=== PATIENT | male | born 1965 | race Caucasian/White ===

== ENCOUNTER 2017-02-20 11:08 | Outpatient (CLI) | payer MEDICAID ==
[~2017-02-20] VITALS: Ht 193 cm; Wt 113.6 kg
--- NOTE | ~2017-02-20 | HEMODYNAMI ---
PATIENT:MALIHA SHARMA MEDICAL RECORD: [id number] : 67 LOCATION:D.CAT ADMISSION DATE: 02/20/17 Generatedon:02/20/201713:20 Patient name: MALIHA SHARMA Patient #: [id number] SSN: D OB: 1965 Date of study: 02/20/2017 Page: Of Hemodynamic Procedure Report Patient Data Patient Demographics Procedure consent was obtained First Name: MALIHA Gender: Male Last Name: ZACHARY : 1965 Middle Initial: CHANDA Age: 51 year(s) Patient #: [id number] Race: Unknown Additional ID: [id number] Contact details [address]: [address] [place] [address] State: [place] City: [place] Zip code: [address] Past Medical History Allergies: No known allergies Admission Admission Data Admission Date: 02/20/2017 Admission Time: 11:08 Procedure Procedure Types Cath Procedure Diagnostic Procedure LHC LHC w/Coronaries Miscellaneous Procedures Moderate Sedation up to 15 minutes Procedure Description Procedure Date Procedure Date: 02/20/2017 Procedure Start Time: 13:06 Procedure End Time: 13:19 Procedure Staff Name Function Vahid Dominguez MD Performing Physician Xi Milan RT Monitor Nanette Blanca RT Scrub Evan Catalan RN Nurse Procedure Data Cath Procedure Fluoroscopy Diagnostic fluoroscopy Total fluoroscopy Time: 1.3 time: 1.3 min min Diagnostic fluoroscopy Total fluoroscopy dose: 471 dose: 471 mGy mGy Contrast Material Contrast Material Type Amount (ml) Isovue 300 57 Entry Location Entry Primary Successful Side Size Upsize Upsize Entry Closure Succes sful Closure Location (Fr) 1 (Fr) 2 (Fr) Remarks Device Remarks Femoral Right 5 Fr Exoseal artery Estimated blood loss: 5 ml Diagnostic catheters Device Type Used For End Catheter Placement MULTIPACK JL 4.0 5Fr Left Coronary catheter Angiography MULTIPACK 3DRC 5Fr Right Coronary catheter Angiography MULTIPACK Pigtail 5 Fr LV Angiography catheter Procedure Complications No complications Procedure Medications Medication Administration Route Dosage 0.9% NaCl I.V. 100 ml/hr Oxygen NC 2 l/min Heparin Flush Bag added to field 2 bags (1000units/500ml NS) Lidocaine 2% added to field 20 Versed I.V. 1 mg Fentanyl I.V. 50 mcg Zofran I.V. 4 mg Hemodynamics Rest Heart Rate: 66 (bpm) Pressure Samples Time Site Value (mmHg) Purpose Heart Use Rate(bpm) 13:13 LV 115/11,16 EDP 76 13:14 AO 135/84(105) Pullback 76 13:14 LV 127/13,26 Pullback 76 Gradients Valve Time Site 1 Site 2 Mean SEP/DFP Peak To Heart Use (mmHg) (sec/min) Peak Rate (mmHg) (bpm) Aortic 13:14 LV AO 0 6 0 76 127/13,26 135/84(105) Calculations Valve P-P Mean Valve Index Valve Source Name Gradient Area Flow (cm2) Aortic 0 0 0 0 Snapshots Pre Cath Intra NCS Post Cath Vital Signs Time Heart Resp SPO2 etCO2 NIBP (mmHg) Rhythm Pain Sedation Rate (ipm) (%) (mmHg) Status Level (bpm) 12:59:41 63 16 97 0 137/92(119) NSR 0 (11) 10(A) , No pain 13:04:22 68 16 90 37 142/80(107) NSR 0 (11) 10(A) , No pain 13:08:58 76 14 92 38.5 143/91(123) NSR 0 (11) 9(A) , No pain 13:13:37 77 17 96 35.5 143/88(129) NSR 0 (11) 10(A) , No pain 13:18:19 74 17 96 30.2 139/90(114) NSR 0 (11) 10(A) , No pain 13:20:04 78 19 98 38.5 140/90(109) NSR 0 (11) 10(A) , No pain Medications Time Medication Route Dose Verified Delivered Reason Notes Effe ctiveness by by 13:01:36 0.9% NaCl I.V. 100 Evan Evan Per ml/hr Hossein Catalan physician RN RN 13:01:46 Oxygen NC 2 Evan Evan Per l/min Hossein Catalan physician RN RN 13:01:59 Heparin Flush added 2 Evan Evan used for Bag to bags Hossein Catalan procedure (1000units/500ml field RN RN NS) 13:02:15 Lidocaine 2% added 20ml Evan Evan for local to vial Lorigan Khushiigan anesthetic field RN RN 13:02:28 Versed I.V. 1 mg Evan Evan for Lorigan Lorigan sedation RN RN 13:02:40 Fentanyl I.V. 50 Evan Evan for mcg Lorigan Hossein sedation RN RN 13:11:43 Zofran I.V. 4 mg Evan Evan Per Hossein Catalan physician RN ski binding fitter and repairer Log Time Note 12:46:36 Evan Catalan RN sent for patient. Start room use. 12:46:37 Time tracking: Regular hours 12:46:42 Plan of Care:Hemodynamics will remain stable., Cardiac rhythm will remain stable., Comfort level will be maintained., Respiratory function will remain adequate., Patient/ family verbilizes understanding of procedure., Procedure tolerated without complication., Recovers from procedure without complications.. 12:50:57 Patient received from Pre/Post Procedure Room to CCL 1 Alert and oriented. Tansferred to table in Supine position. 12:50:58 Warm blankets applied, and jamilah hugger turned on for patient comfort. 12:51:00 Correct patient and procedure confirmed by team. 12:51:03 Signed procedure consent form obtained from patient. 12:51:04 ECG and BP/O2 sat monitors applied to patient. 12:51:05 Full Disclosure recording started 12:58:49 Vital chart was started 12:58:52 Rhythm: sinus rhythm 12:59:32 H&P Date Dictated: 02/14/2017 Within 30 days and on chart., H&P Addendum completed by physician on day of procedure. (MUST COMPLETE FOR ALL OUTPATIENTS). 12:59:33 Pre-procedure instructions explained to patient. 12:59:34 Pre-op teaching completed and patient verbalized understanding. 12:59:35 Family in patients room. 12:59:37 Patient NPO since Midnight. 12:59:43 Patient allergic to No known allergies 12:59:45 Is the patient allergic to Iodine/contrast media? No. 12:59:47 Is patient on blood thinner?No 12:59:51 Patient diabetic? No. 12:59:55 Previous problem with sedation/anesthesia? No ? 12:59:55 Snore? Yes 12:59:56 Sleep apnea? No 12:59:57 Deviated septum? No 12:59:58 Opens mouth fully? Yes 12:59:58 Sticks out tongue? Yes 13:00:00 Airway obstruction? No ? 13:00:02 Dentures? Yes IN 13:00:07 Pre procedure: right dorsailis pedis pulse 2+ Normal; easily identifiable; not easily obliterated 13:00:09 Modified Carrillo's test Ulnar > 7 seconds. 13:00:11 Patient pain scale 0/10 ?. 13:00:17 IV patent on arrival in left hand with 0.9% NaCl at [facility]. 13:00:20 Lab results completed and on chart. 13:00:22 Right groin area was prepped with chlora-prep and draped in sterile fashion 13:00:25 Alarms reviewed by R. N. 13:00:25 Sharps counted by scrub and verified by R.N. 13:00:27 Final Timeout: patient, procedure, and site verified with staff and physician. All members of the team are in agreement. 13:00:29 Right groin site verified by team. 13:00:32 Physical assessment completed. ASA score P 2 - A patient with mild systemic disease as per Vahid Dominguez MD. 13:00:34 Sedation plan: IV Moderate Sedation Medication:Versed, Fentanyl 13:01:36 0.9% NaCl 100 ml/hr I.V. was administered by Evan Catalan RN; Per physician; 13:01:43 Use device set Femoral Dx 13:01:44 ACIST Syringe (90811) opened to sterile field. 13:01:44 Bag Decanter (2002S) opened to sterile field. 13:01:45 Medline Cath Pack ([id number]) opened to sterile field. 13:01:45 SHEATH 5FR [place] (ZVO509) opened to sterile field. 13:01:46 Oxygen 2 l/min NC was administered by Evan Catalan RN; Per physician; 13:01:46 DIAGNOSTIC WIRE .035 260cm J wire (190315) opened to sterile field. 13:01:47 ACIST Hand Control (66055) opened to sterile field. 13:01:48 ACIST Manifold (50329) opened to sterile field. 13:01:49 DIAGNOSTIC Multipack 5Fr catheter set (FX1996) opened to sterile field. 13:01:49 Tegaderm 4 x 4 (1626W) opened to sterile field. 13:01:50 PERCUTANEOUS ENTRY 19GA needle opened to sterile field. 13:01:59 Heparin Flush Bag (1000units/500ml NS) 2 bags added to field was administered by Evan Catalan RN; used for procedure; 13:02:15 Lidocaine 2% 20ml vial added to field was administered by Evan Catalan RN; for local anesthetic; 13:02:28 Versed 1 mg I.V. was administered by Evan Catalan RN; for sedation; 13:02:40 Fentanyl 50 mcg I.V. was administered by Evan Catalan RN; for sedation; 13:04:54 Zero performed for pressure channel P1 13:05:53 Procedure started. 13:06:11 Local anesthetic to right femoral artery with Lidocaine 2% by Vahid Dominguez MD.INITIAL ACCESS ONLY 13:06:29 A 5 Fr sheath was inserted into the Right Femoral artery 13:07:03 Baseline sample Acquired. 13:08:03 A MULTIPACK JL 4.0 5Fr catheter was advanced over the wire and used for Left Coronary Angiography. 13:09:19 Catheter removed. 13:11:43 Zofran 4 mg I.V. was administered by Evan Catalan RN; Per physician; 13:11:46 A MULTIPACK 3DRC 5Fr catheter was advanced over the wire and used for Right Coronary Angiography. 13:12:16 Catheter removed. 13:12:53 A MULTIPACK Pigtail 5 Fr catheter was advanced over the wire and used for LV Angiography. 13:13:50 LV gram done using RUDOLPH 13:13:53 Injector settings: Ml/sec: 10, Volume: 20, 13:13:54 LV hemodynamics recorded. 13:13:58 EF : 60 % 13:14:04 Catheter removed. 13:14:13 Sheath removed intact; hemostasis achieved with Exoseal to the Right Femoral artery. 13:14:15 EXOSEAL 5Fr (EX500) opened to sterile field. 13:14:23 Procedure ended.(Physican Out) 13:14:37 Fluoroscopy time 01.30 minutes. 13:15:52 Fluoroscopy dose: 471 mGy 13:15:52 Flurop Dose total: 471 13:15:58 Contrast amount:Isovue 300 57ml. 13:16:00 Sharps counted by scrub and verified by R.N. 13:16:03 Insertion/operative site no bleeding no hematoma. 13:16:07 Post-op/insertion site Right Femoral artery dressed using a 4 x 4 and Tegaderm. 13:16:12 Post right femoral artery:stable, soft, clean and dry 13:16:14 Post Procedure Pulses reassessed and unchanged 13:16:18 Post-procedure physical assessment completed. ASA score P 2 - A patient with mild systemic disease as per Vahid Dominguez MD. 13:16:21 Post procedure rhythm: unchanged. 13:16:23 Estimated blood loss: 5 ml 13:16:25 Post procedure instruction explained to patient.Patient verbalizes understanding. 13:16:25 Patient needs reinforcement of post procedure teaching. 13:16:39 Procedure type changed to Cath procedure, Diagnostic procedure, LHC, LHC w/Coronaries, Miscellaneous Procedures, Moderate Sedation up to 15 minutes 13:16:46 Procedure Complication : No complications 13:16:51 See physician's report for complete and final results. 13:17:15 Procedure and supply charges have been captured, reviewed, submitted and are correct. 13:19:04 Vital chart was stopped 13:19:08 Report given to Pre/Post Procedure Room. 13:19:10 Patient transfered to Pre/Post Procedure Room with Stretcher. 13:19:12 Procedure ended. 13:19:12 Full Disclosure recording stopped 13:19:20 End room use (Document Last) Device Usage Item Name Manufacture Quantity Catalog Hospital Part Current Minimal Lot# / Number Charge Number Stock Stock Serial# Code ACIST Acist 1 [id number] [id number] 520097 309695 20 Syringe Medical (98413) Systems Inc Bag Decanter Microtek 1 2001S 060451 49450 280222 5 () Medical Inc. Medline Cath Cardinal 1 [id number] 853138 [address] [facility] ([id number]) SHEATH 5FR Terumo 1 [id number] 666684 359987 322217 40 [place] (XLG574) DIAGNOSTIC St García 1 594687 082645 342014 545793 30 WIRE .035 260cm J wire (823644) ACIST Hand Acist 1 82004 808857 084156 953277 5 Control Medical (10580) Systems Inc ACIST Acist 1 69951 375671 791869 148621 5 Manifold Medical (08002) Systems Inc DIAGNOSTIC Cardinal 1 [id number] 602174 24574 469242 30 Multipack Health 5Fr catheter set (ZX5711) Tegaderm 4 x 3M 1 1626W 193745 937054 094044 5 4 (1626W) PERCUTANEOUS Cook Medical 1 S01798 007755 598709 5 ENTRY 19GA needle MULTIPACK JL Cardinal 1 [id number] 5 4.0 5Fr Health catheter MULTIPACK Cardinal 1 234368 5 3DRC 5Fr Health catheter MULTIPACK Cardinal 1 931588 5 Pigtail 5 Fr Health catheter EXOSEAL 5Fr Cardinal 1 EX500 647053 576674 505711 10 (EX500) Health Signature Audit [place] Stage Time Signature Unsigned Intra-Procedure 02/20/2017 Xi 1:20:53 PM Counts RT(R) Signatures Monitor : Xi Signature : Counts RT Date : Time : [place] [id number] [facility] [place] [address]
[2017-02-20] MEDS ORDERED: PROVENTIL HFA6.7 GM INH (11:45)
[2017-02-20] MEDS ORDERED: BAYER CHEWABLE81 MG PO (11:45)
[2017-02-20 11:47] VITALS: BP 146/91; Ht 193 cm; Wt 113.6 kg
[2017-02-20 12:04] LABS: BASOPHILS 0.4 % (0-2); EOSINOPHILS 1.3 % (0-7); HEMATOCRIT 53.2 % (42.0-54.0); HEMOGLOBIN 18.7 g/dL (13.5-17.5); IMMATURE GRANULOCYTES 0.1 % (0-5); LYMPHOCYTES 30.9 % (15-50); MCH 31.3 pg (26.0-34.0); MCHC 35.2 g/dL (31.0-37.0); MCV 89.1 fL (80.0-100.0); MEAN PLATELET VOLUME 11.7 fL (7.4-10.4); MONOCYTES 9.3 % (2-11); PLATELET COUNT 174 10x3/uL (130-400); RBC 5.97 10x6/uL (4.20-6.10); RDW 13.6 % (11.5-14.5); WBC 8.3 10x3/uL (4.8-10.8)
[2017-02-20 12:22] LABS: CALC OSMOLALITY 269 mosm/kg (275-300); CALCIUM 9.2 mg/dL (8.5-10.1); CARBON DIOXIDE 25.1 mmol/L (21.0-32.0); CHLORIDE - SERUM 100 mmol/L (98-107); CREATININE - SERUM 0.7 mg/dL (0.6-1.3); GLUCOSE 97 mg/dL (74-106); POTASSIUM - SERUM 4.7 mmol/L (3.5-5.1); SODIUM 135 mmol/L (136-145); UREA NITROGEN 12 mg/dL (7-18); eGFR NON AFRICAN AMERICAN > 90 mL/min (90-120)
--- NOTE | 2017-02-20 13:45 | NUR ---
ROOM AIR, NO RESP DISTRESS. RIGHT GROIN 5F EXOSEAL CDI, NO BLEEDING OR HEMATOMA NOTED. VSS. NO C/O AT THIS TIME. CALL LIGHT WITHIN REACH.
--- NOTE | 2017-02-20 14:58 | NUR ---
HOB ELEVATED 30 DEGREES. RIGHT GROIN 5F EXOSEAL CDI, NO BLEEDING NOTED. SANDWICH TRAY AND DRINK GIVEN, NO C/O NAUSEA. VSS.
--- NOTE | 2017-02-20 15:15 | NUR ---
LEFT HAND PIV D/'CD WITH CATHETER INTACT, BAND AID TO SITE. UP TO BEDSIDE TO GET DRESSED.
--- NOTE | 2017-02-20 15:22 | NUR ---
DISCHARGE INSTRUCTIONS GIVEN, VERBALIZED UNDERSTANDING.
--- NOTE | 2017-02-20 15:30 | NUR ---
TAKEN OUT VIA WHEELCHAIR BY CATH BIAS BINDING FOLDER. LEFT FACILITY WITH FAMILY AND ALL PERSONAL BELONGINGS.
--- NOTE | 2017-02-25 08:17 | OP ---
PATIENT NAME: MALIHA SHARMA MEDICAL RECORD: [id number] :67 LOCATION:D.CAT ADMISSION DATE: SURGEON: TELLY CLEMENTS MD DATE OF OPERATION: 02/20/2017 PROCEDURE: Left heart catheterization, selective coronary angiography, right femoral artery approach. CATHETERS: A 5-Danish sheath, 5/4 left and right Danisha, 5/4 pig. The procedure was well tolerated and the patient returned to the shafer, sheath removed. ExoSeal device placed. FINDINGS: Left ventriculography in 30-degree RUDOLPH view: Normal wall motion, normal systolic function. CORONARY ANATOMY. LEFT MAIN: Left main is free of disease. LAD: Free of disease in the diagonal system. CIRCUMFLEX: Free of disease in the marginal system. RIGHT CORONARY ARTERY: Dominant artery, gives rise to PDA, free of disease. IMPRESSION: Normal systolic function. Normal coronary anatomy. TRANSINT:[id number] Voice Confirmation ID: [id number] DOCUMENT ID: [id number] TELLY CLEMENTS MD at 0817 CC: [id number] DICTATION DATE: 02/20/17 1323 REPAIRER VENEER SHEET: 02/20/17 1335 DEP CLI 02/20/17 [facility] [address] [place] [address]
== END 2017-02-20 15:30 | disposition home or self-care (01) ==
LOC: D.CATH 11:08
PROVIDERS: Internal Medicine Interventional Cardiology
DX: I20.9 Angina pectoris, unspecified (principal); R06.02 Shortness of breath; R07.9 Chest pain, unspecified; F17.200 Nicotine dependence, unspecified, uncomplicated; Z01.812 Encounter for preprocedural laboratory examination

== ENCOUNTER → 2019-10-30 10:49 | Outpatient (CLI) | payer MEDICAID ==
[2017-02-20 11:47] VITALS: BMI 30.5
[~2019-10-30 10:49] MED LIST: BAYER CHEWABLE81 MG PO; PROVENTIL HFA6.7 GM INH
== END | disposition home or self-care (01) ==
LOC: D.RAD 10:49
PROVIDERS: ATTEND Nurse Practitioner Family
DX: R05 Cough (principal)